=== PATIENT | female | born 1970 | race Caucasian/White ===

== ENCOUNTER 2018-09-30 19:07 | Emergency (ER) | payer MEDICAID ==
[~2018-09-30] VITALS: Ht 165.1 cm; Wt 89.8 kg
[2018-09-30 19:27] VITALS: BP 144/96
--- NOTE | 2018-09-30 21:39 | NUR ---
PT AMBULATED TO ER BED 05
--- NOTE | 2018-09-30 21:49 | NUR ---
PT BIB family for R great toe pain. PT reports smashing to at work. Visible redness, minimal serousanguineous drainage present, and slight blackend toenail. PT reports archy pain at 9/10 that increases with movement and putting pressure on it. PT has full ROM with toe. ER MD to see PT. Safety precautions in place, will continue to monitor. MedHx: DM II RX: Metformin
[2018-09-30 23:19] VITALS: BP 138/86
== END 2018-09-30 23:19 | disposition home or self-care (01) ==
LOC: MED 19:07
DX: S90.211A Contusion of right great toe with damage to nail, initial encounter (principal); L08.9 Local infection of the skin and subcutaneous tissue, unspecified; E11.9 Type 2 diabetes mellitus without complications; W22.8XXA Striking against or struck by other objects, initial encounter; Y93.89 Activity, other specified; Y92.89 Other specified places as the place of occurrence of the external cause; Y99.8 Other external cause status
CPT/HCPCS: 11740; 99283

== ENCOUNTER 2018-12-27 19:46 | Emergency (ER) | payer MEDICAID ==
[~2018-12-27] VITALS: Ht 165.1 cm; Wt 86.2 kg
[2018-12-27 19:52] VITALS: BP 151/85
--- NOTE | 2018-12-27 19:57 | NUR ---
TO LOBBY A/W BED, AMBULATORY, ERMNarinder NOTED
--- NOTE | 2018-12-27 20:16 | NUR ---
PT AMBULATED TO ER BED 12
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
--- NOTE | 2018-12-27 20:28 | NUR ---
PT TAKEN TO RAD
--- NOTE | 2018-12-27 20:40 | NUR ---
CONTACTED JEREMY MERIDA TO CONFIRM CASE REPORT NUMBER, #[id number].
--- NOTE | 2018-12-27 20:40 | NUR ---
PT RETURN FROM RAD
--- NOTE | 2018-12-27 20:56 | NUR ---
Dr. Ray evaluating patient at bedside.
[2018-12-27] MEDS ORDERED: KETOROLAC 60 MG/2 ML VIAL IM ONE (21:00)
--- NOTE | 2018-12-27 21:40 | NUR ---
BLOOD SUGAR OF 169, ER AWARE.
[2018-12-27 22:30] VITALS: BP 145/75
== END 2018-12-27 22:30 | disposition home or self-care (01) ==
LOC: MED 19:46
DX: S00.83XA Contusion of other part of head, initial encounter (principal); S00.93XA Contusion of unspecified part of head, initial encounter; S00.511A Abrasion of lip, initial encounter; M79.645 Pain in left finger(s); E11.9 Type 2 diabetes mellitus without complications; Z98.890 Other specified postprocedural states; Y04.0XXA Assault by unarmed brawl or fight, initial encounter; Y93.89 Activity, other specified; Y92.89 Other specified places as the place of occurrence of the external cause; Y99.8 Other external cause status
CPT/HCPCS: 70486; 73140; 82948; 90471; 90715; 96372; 99284; J1885

== ENCOUNTER 2021-01-22 13:26 | Emergency (ER) | payer MEDICAID ==
[~2021-01-22] VITALS: Ht 165.1 cm; Wt 86.2 kg
[2021-01-22 13:33] VITALS: BP 159/74
--- NOTE | 2021-01-22 13:37 | NUR ---
PT TAKEN TO LOBBY.
--- NOTE | 2021-01-22 13:46 | NUR ---
PT AMBULATED TO ER BED 11.
--- NOTE | 2021-01-22 13:47 | NUR ---
50 Y/O FEMALE C/O L SHOULDER/ARM PAIN 9/10 DESCRIBES THROBBING RADIATING TO RIGHT RIGHT SHOULDER/ARM [id number]. PT ALSO C/O RIGHT LOWER BACK PAIN 9/10 DESCRIBES THROBBING [id number]. PT TOOK 800MG IBUPROFEN WITH NO RELIEF. PT STATES WORK INJURY FALLING WHILE ON A LADDER X3 WEEKS AGO. ACCUE CHECK 234. PT IS ALSO OUT OF METFORMIN 500MG PO BID AND NEEDS REFILL. LAST TIME TAKEN [id number] AGO. NO INSURANCE. PT DENIES N/V, DENIES FEVER/CHILLS. PMH: DM NKA
--- NOTE | 2021-01-22 13:55 | NUR ---
RENÉ CHEN AT PT BEDSIDE FOR FURTHER EVALUATION.
[2021-01-22] MEDS ORDERED: KETOROLAC 30 MG/ML VIAL IM ONE (14:00)
--- NOTE | 2021-01-22 14:01 | NUR ---
Pt taken to XR via W/C.
[2021-01-22] MEDS ORDERED: DICL-342 PO (14:36)
[2021-01-22] MEDS ORDERED: METF500T PO (14:38)
[2021-01-22 14:54] VITALS: BP 159/74
--- NOTE | 2021-01-22 14:55 | NUR ---
Patient discharged with v/s stable. Written and verbal after care instructions given and explained. Patient alert, oriented and verbalized understanding of instructions. Ambulatory with steady gait. All questions addressed prior to discharge. ID band removed. Patient advised to follow up with PMD. Rx of voltaren 75mg bid po prn pain, and metformin 500mg bid po given. Patient educated on indication of medication including possible reaction and side effects. Opportunity to ask questions provided and answered.
== END 2021-01-22 14:55 | disposition home or self-care (01) ==
LOC: MED 13:26
DX: M25.512 Pain in left shoulder (principal); Z76.0 Encounter for issue of repeat prescription; E11.9 Type 2 diabetes mellitus without complications; Z79.899 Other long term (current) drug therapy; W11.XXXD Fall on and from ladder, subsequent encounter
CPT/HCPCS: 73030; 96372; 99283; J1885